=== PATIENT | male | born 1935 | race Caucasian/White ===

== ENCOUNTER 2016-09-12 06:30 | Day surgery (SDC) | payer BC ==
--- NOTE | ~2016-09-12 | OP ---
Record Of Operation [facility] [address] [place]. [address] NAME: DARÍO GARCIA : 31 STATUS : [facility]#: [id number] AGE: 81 ADM/REG DATE : 09/12/16 MR#: [id number] REPORT SERV DATE: 10/07/16 DICTATED BY: ROE GARCIA DATE: 09/12/16 REPORT STATUS : Draft TRANSCRIBED BY: MODL DATE: 09/12/16 DATE OF PROCEDURE: 09/12/2016 PROCEDURE: Bronchoscopy with biopsy and argon plasma coagulation. SPECIMENS: BAL, right mainstem tumor; endobronchial biopsy, right mainstem tumor; brushing, right mainstem tumor. ESTIMATED BLOOD LOSS: 5-10 mL, epinephrine had been injected onto the tumor because of bleeding. DESCRIPTION: Informed consent was taken both verbal and written from the patient. Time-out was performed before procedure was started. All questions were answered. The patient was intubated endotracheally by Anesthesia and sedated under general anesthesia. Fiberoptic scope was inserted through the endotracheal tube to visualize the distal trachea and carly. I immediately saw abnormalities going into the right upper lobe with evidence of old clot and tumor plug in the right upper lobe. The segments of the remainder of the right lung and left lung were open and free of any other endobronchial lesions or abnormalities. I focussed most of my attention at the tumor in the right upper lobe/right mainstem. We took an endobronchial biopsy of the tumor, and it showed evidence of easy bleeding. This required frequent suctioning, and we did have a trap on the time to collect any bleeding and secretions. We made two touch preps with endobronchial biopsy and had several other specimens put into pathology cup. We also performed a brushing of this right mainstem tumor as well and had saline squirted down to the area to help clean the area out as well as for suction back for the trap. We had to inject epinephrine onto the lesion because of ongoing blood oozing. This did help control hemostasis, but there still was some mild oozing that did occur. We suctioned and cleaned out the area as best we could, and then with supervision by Dr. Jeremías Charles, we proceeded with argon plasma coagulation. Settings for the argon plasma were 0.8 L/minute flow rate at 15 leyva. The FiO2 was set at 35% on the ventilator, which was done by Anesthesia. The argon catheter was inserted into the airway and was over 4 cm away from the tip of the ET tube, and we used the argon plasma to control hemostasis and afford tissue construction of the tumor that is going to the right upper lobe. At the end of the procedure, we did coagulate the surface of the tumor and had no further bleeding. The patient tolerated the procedure well without any complications. Tissue will be sent to Pathology for final analysis. The patient now will proceed with the second part of the procedure, which was a planned bone marrow biopsy by Dr. Vincent Orona. This was at the request of Dr. Cal Toussaint with Oncology. ADDENDUM: Please make note to this bronchoscopy report that we did perform a BAL of the right mainstem, which did show positive cytology for non-small cell lung cancer upon final result. CEP/MODL Record Of [address] [address] NAME: DARÍO GARCIA : 31 STATUS : [facility] PAT#: [id number] AGE: 81 ADM/REG DATE : 09/12/16 MR#: [id number] REPORT SERV DATE: 10/07/16 DICTATED BY: ROE GARCIA DATE: 09/12/16 REPORT STATUS : Draft TRANSCRIBED BY: MODL DATE: 09/12/16 Roe Garcia DO / [id number] CC: DO Catherine Da Silva M.D. Derek W Holland, M.D.
--- NOTE | ~2016-09-12 | OP ---
Record Of Operation [facility] [address] [address] NAME: DARÍO GARCIA : 31 STATUS : [facility]#: [id number] AGE: 81 ADM/REG DATE : 09/12/16 MR#: [id number] REPORT SERV DATE: 10/06/16 DICTATED BY: ROE GARCIA DATE: 10/06/16 REPORT STATUS : Draft TRANSCRIBED BY: MODL DATE: 10/06/16 DATE OF PROCEDURE: 09/12/2016 ADDENDUM: Please make note to this bronchoscopy report that we did perform a BAL of the right mainstem, which did show positive cytology for non-small cell lung cancer upon final result. CEP/ISELAL Roe Garcia DO / [id number]
[~2016-09-12 06:30] MED LIST: ALEVE220 MG PO; ASAB PO; B COMPLETE PO; BENEFIBER PO; CELEXA20 PO; CENTRUM PO; CITRACAL PO; CO Q-10100 MG PO; COQ10100 MG PO; CRANACTIN PO; FEOSOL PO; FLOMAX4 PO; GLUCCHONDR PO; GLUCPH PO; HYDROCHLOROT12.5 MG PO; L-CARNITINE500 M1 OR; L20 PO; LOP25 PO; MELA3 PO; METAMUCIL CAN7 OZ PO; METFORMIN PO; MICROZIDE PO; NAP375 PO; OS500+D PO; PRAV10 PO; PRIN20 PO; REM15 PO; T PO; THERAPEUTIC PO; TIAZA4 PO; Tylenol PO; VITAMIN B 50 PO; VITAMIN D1000 UNI1 PO; ZESTRIL20 MG PO
[2016-09-12 06:48] LABS: BASOPHILS 0.1 %; BASOPHILS ABSOLUTE 0.01 10/3/uL (0.0-0.16); EOSINOPHILS 2.3 %; EOSINOPHILS ABSOLUTE 0.23 10/3/uL (0.0-0.53); HEMATOCRIT 29.5 % (40.0-51.0); HEMOGLOBIN 9.5 g/dL (13.6-17.8); IMMATURE GRANULOCYTES 0.4 %; IMMATURE GRANULOCYTES ABSOLUTE 0.04 10/3/uL (0.0-0.11); LYMPHOCYTES 15.8 %; LYMPHOCYTES ABSOLUTE 1.61 10/3/uL (0.67-4.30); MEAN CORPUS HGB CONC 32.2 g/dL (32.0-36.0); MEAN CORPUSCULAR HEMOGLOB 28.3 pg (26.0-34.0); MEAN CORPUSCULAR VOLUME 87.8 fL (80-100); MEAN PLATELET VOLUME 8.5 fL (9.2-13.0); MONOCYTES 16.2 %; MONOCYTES ABSOLUTE 1.65 10/3/uL (0.21-1.20); NEUTROPHILS 65.2 %; NEUTROPHILS ABSOLUTE 6.65 10/3/uL (2.02-8.40); PLATELET COUNT 431 10/3/uL (150-400); RBC DISTRIBUTION WIDTH 16.5 % (12.0-16.0); RED CELL COUNT 3.36 10/6/uL (4.7-6.1); WHITE BLOOD CELLS 10.2 10/3/uL (4.5-10.5)
[2016-09-12 06:50] LABS: MANUAL DIFF NO %; RETICULOCYTE COUNT 2.1 % (0.5-2.5); RETICULOCYTE COUNT ABSOLUTE 71.8 10/3/uL (20.2-119.8)
[2016-09-12 06:57] LABS: BUN (BLOOD UREA NITROGEN) 12 MG/DL (6-23); CALCIUM, SERUM 8.9 MG/DL (8.5-10.4); CHLORIDE, SERUM 104 MMOL/L (96-112); CO2 (CARBON DIOXIDE) 28 MMOL/L (24-34); POTASSIUM, SERUM 4.2 MMOL/L (3.5-5.3); SODIUM, SERUM 140 MMOL/L (135-148)
[2016-09-12 06:58] LABS: INTERNATIONAL NORMAL RATI 1.2 UNITS (-); PARTIAL THROMBO TIME 38.8 SEC (22.5-37.2); PROTIME (NOT ORD) 14.9 SEC (12.0-14.5)
[2016-09-12 07:00] LABS: CREATININE 0.82 MG/DL (0.70-1.30); GFR AFRICAN AMERICAN 95 ML/MIN (>=60); GFR NON AFRICAN AMERICAN 82 ML/MIN (>=60); GLUCOSE, SERUM 127 MG/DL (60-99)
[2016-09-12 13:51] LABS: BD FL LYMPH (NOT ORD) 2 %; BF BASO (NOT OF) 0 %; BF LARGE MONONUCLEAR 34 %; BF TOTAL CELL CT (NOT ORD 710 /MM3; BODY FLUID EOS (NOT ORD) 0 %; BODY FLUID SEG (NOT ORD) 64 %
[2016-09-12 13:52] LABS: BD FL SOURCE (NOT ORD) BAL RT; BODY FLUID RBC (NOT ORD) 225000 /MM3
[2016-12-19] MEDS ORDERED: DSS PO (08:40)
[2016-12-19] MEDS ORDERED: ALEVE220 MG PO (08:40)
[2016-12-19] MEDS ORDERED: CARBOPLATIN150 MG IV (08:40)
[2016-12-19] MEDS ORDERED: CRANBERRY300 MG PO (08:41)
[2016-12-19] MEDS ORDERED: FERROUS SULF325 M1 PO (08:41)
[2016-12-19] MEDS ORDERED: GLUCPH PO (08:42)
[2016-12-19] MEDS ORDERED: VITAMIN D31000 UNIT PO (08:42)
[2016-12-19] MEDS ORDERED: PRAV10 (11:34)
[2016-12-22] MEDS ORDERED: PLAVIX PO (15:20)
[2016-12-22] MEDS ORDERED: NORV5 PO (19:01)
== END 2016-09-12 23:59 | disposition home or self-care (01) ==
LOC: DMU 06:30
PROVIDERS: Anesthesiology; Internal Medicine Pulmonary Disease; Pathology Anatomic Pathology & Clinical Pathology
PROC: 0BB38ZX Excision of Right Main Bronchus, Via Natural or Artificial Opening Endoscopic, Diagnostic (ICD-10-PCS; principal; 2016-09-12 08:00)
PROC: 0BB38ZX Excision of Right Main Bronchus, Via Natural or Artificial Opening Endoscopic, Diagnostic (ICD-10-PCS; 2016-09-12 08:00)
PROC: 0BB Respiratory System, Excision (ICD-10-PCS; 2016-09-12 08:00)
DX: C34.01 Malignant neoplasm of right main bronchus (principal); I10 Essential (primary) hypertension; E11.9 Type 2 diabetes mellitus without complications; Z98.41 Cataract extraction status, right eye; Z98.42 Cataract extraction status, left eye; Z96.1 Presence of intraocular lens; Z90.49 Acquired absence of other specified parts of digestive tract; Z95.5 Presence of coronary angioplasty implant and graft; M19.90 Unspecified osteoarthritis, unspecified site; Z98.890 Other specified postprocedural states; K57.90 Diverticulosis of intestine, part unspecified, without perforation or abscess without bleeding; N40.0 Benign prostatic hyperplasia without lower urinary tract symptoms; D64.9 Anemia, unspecified; Z85.51 Personal history of malignant neoplasm of bladder; Z79.899 Other long term (current) drug therapy; Z79.82 Long term (current) use of aspirin
CPT/HCPCS: 80048; 81235; 85025; 85045; 85610; 85730; 87015; 87070; 87102; 87116; 87205; 88112; 88184; 88185; 88305; 88311; 88312; 88313; 88333; 88341; 88342; 88344; 88367; 89051; 93005; A9270-GY; J2405; J2710; J3010

== ENCOUNTER 2016-09-18 08:31 | Day surgery (SDC) | payer BC ==
--- NOTE | ~2016-09-18 | EGD ---
EGD REPORT [facility] [address] [address] NAME: DARÍO GARCIA : 31 STATUS : REG [facility] PAT#: [id number] AGE: 81 ADM/REG DATE : 09/18/16 MR#: [id number] REPORT SERV DATE: 09/18/16 DICTATED BY: BRITTNY DOCKERY DATE: 09/18/16 REPORT STATUS : Draft TRANSCRIBED BY: [employer] DATE: 09/18/16 Pulmonology Patient Name: Darío Garcia Procedure Date: 09/18/2016 1:32 PM Date of : 1935 Attending MD: SHARITA DOCKERY MD Procedure Date No Time: 09/18/2016 Procedure: Flexible Rigid Bronchoscopy Indications: RUL/ROSEMARY NSCLCa. Tumor debulking and staging. Providers: SHARITA DOCKERY MD Referring MD: JAS GARCIA Medicines: Lidocaine 2% 20 mL Complications: No immediate complications Procedure: Pre-Anesthesia Assessment: - A History and Physical has been performed. Patient meds and allergies have been reviewed. The risks and benefits of the procedure and the sedation options and risks were discussed with the patient. All questions were answered and informed consent was obtained. Patient identification and proposed procedure were verified prior to the procedure by the physician and the nurse in the procedure room. Mental Status Examination: normal. Airway Examination: normal oropharyngeal airway. Respiratory Examination: poor air movement. CV Examination: normal and RRR, no murmurs, no S3 or S4. ASA Grade Assessment: III - A patient with severe systemic disease. After reviewing the risks and benefits, the patient was deemed in satisfactory condition to undergo the procedure. The anesthesia plan was to use general anesthesia. Immediately prior to administration of medications, the patient was re-assessed for adequacy to receive sedatives. The heart rate, respiratory rate, oxygen saturations, blood pressure, adequacy of pulmonary ventilation, and response to care were monitored throughout the procedure. The physical status of the patient was re-assessed after the procedure. After obtaining informed consent, the BF [id number] was introduced through the mouth, via the endotracheal tube (the patient was intubated for the procedure) and advanced to the tracheobronchial tree. the Bronchoscope was introduced through the and advanced to the. The procedure was accomplished without difficulty. The patient tolerated the procedure well. Findings: The endotracheal tube is in good position. The visualized portion of the EGD REPORT [place] [id number] [facility] [place]. [address] NAME: DARÍO GARCIA : 31 STATUS : REG [facility]#: [id number] AGE: 81 ADM/REG DATE : 09/18/16 MR#: [id number] REPORT SERV DATE: 09/18/16 DICTATED BY: BRITTNY DOCKERY DATE: 09/18/16 REPORT STATUS : Draft TRANSCRIBED BY: [facility] DATE: 09/18/16 trachea is of normal caliber. The carly is sharp. The tracheobronchial tree was examined to at least the first subsegmental level. Large friable tumor with approximately 50% airway obstruction. Endobronchial biopsies and tumor debulking performed with GI Jumbo forceps. The ROSEMARY is now completely patent. I am not able to salvage the RUL due to tumor obstruction and distortion of anatomy. EBUS TBNA of lymph node level 11Lx 4 passes for cytology EBUS TBNA of lymph node level 7 x 4passes for cytology EBUS TBNA of lymph node level 4R x 5passes for cytology Bronchoalveolar lavage was performed in the right upper lobe of the lung and sent for routine cytology. 60 mL of fluid were instilled. 20 mL were returned. The return was bloody. The FiO2 was then lowered to less than 40% and argon plasma coagulation therapy was performed for destruction of tissue and hemostasis. Impression: 1. MIAN: N2 positive disease. 2. Unclear if right mammary node is involved - not a typical site of smith metastasis. If mammary node is positive, he would be upstaged to N3 disease. 3. ROSEMARY tumor debulked and now widely patent. (see pictures) 4. RUL is not salvageable by endoscopic debulking. 5. Additional biopsies taken for possible molecular testing. Recommendation: - Await test results. - Recommend radiation therapy for palliative therapy to RUL for airway obstruction. If he qualifies for definitive therapy, this would be ideal. - Follow up with Dr. Garcia and Dr. Toussaint - Liquid biopsy - Requested PDL1 testing. Attending Participation: I personally performed the entire procedure. SHARITA DOCKERY MD 09/18/2016 2:45 PM This report has been signed electronically. Number of Addenda: 0 Note Initiated On: 09/18/2016 1:32 PM
--- NOTE | ~2016-09-18 | CN ---
Consultation Report [facility] [address] [facility] [address] [place]. [address] NAME: DARÍO GARCIA : 31 STATUS : [facility] [place]#: [id number] AGE: 81 ADM/REG DATE : 09/18/16 MR#: [id number] REPORT SERV DATE: 09/18/16 DICTATED BY: LIONEL DOCKERY DATE: 09/18/16 REPORT STATUS : Draft TRANSCRIBED BY: MODL DATE: 09/18/16 CONSULTATION REPORT DATE OF CONSULTATION: Dear Dr. Toussaint and Dr. Garcia: Thank you for requesting my opinion regarding evaluation and management of Mr. Darío Garcia's right mainstem tumor recently biopsied by Dr. Garcia, positive for non-small cell lung cancer, with immuno stains pending. 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 The patient had a history of subjective shortness of breath and had difficulty walking up a flight of stairs. He had an extensive workup for unexplained weight loss and he was scheduled for bronchoscopy. He had recently underwent a CT imaging that demonstrated right hilar lung mass. Subsequent PET-CT scan was performed on 09/08/2016, that confirmed a mural nodule in the right mainstem with soft tissue adjacent to the right hilum extending along the bronchovascular structures in the right upper lobe. The patient then underwent bronchoscopy by Dr. Roe Garcia on 09/12/2016, that demonstrated a large right hilar lung mass with nearly 50% to 75% airway occlusion and the patient underwent bone marrow biopsy by Dr. Vincent Orona. Biopsy results are still pending, but was positive for non-small cell lung cancer. I discussed the case with Dr. Garcia intraoperatively and later with Dr. Toussaint and we agreed to proceed forward with a flexible rigid bronchoscopy with tumor debulking for therapeutic reasons, and staging of the mediastinum given the recent PET-CT scan findings. The patient states that he has chronic shortness of breath well localized to the chest, nonradiating with no significant alleviating, deviating, or exacerbating factors. REVIEW OF SYSTEMS: A detailed 14-point review of systems was completed. Pertinent positives and negatives are listed above. PAST MEDICAL HISTORY: 1. Basal cell skin carcinoma. 2. Recent diagnosis of non-small cell lung cancer. 3. Coronary artery disease. 4. Bladder cancer. 5. History of sepsis. PAST SURGICAL HISTORY: 1. Appendectomy. 2. Cataract surgery. 3. Foot surgery. 4. Gastric surgery for morbid obesity and graft bypass. Consultation Report [facility] [address] [place]. [address] NAME: DARÍO GARCIA : 31 STATUS : [facility] PAT#: [id number] AGE: 81 ADM/REG DATE : 09/18/16 MR#: [id number] REPORT SERV DATE: 09/18/16 DICTATED BY: LIONEL DOCKERY DATE: 09/18/16 REPORT STATUS : Draft TRANSCRIBED BY: [employer]Ag DATE: 09/18/16 5. Inguinal hernia repair. 6. Knee surgery. 7. Neurologic surgery and carotid endarterectomy. 8. Tonsillectomy. 9. Transcatheter placement of a carotid arterial stent. ALLERGIES: NO KNOWN DRUG ALLERGIES. HOME MEDICATIONS: Reviewed and located in the paper chart. FAMILY HISTORY: Type 2 diabetes, nephritis neck, alcohol abuse, hypertension, and myocardial infarction. SOCIAL HISTORY: The patient is a former smoker, quit 37 years ago, but smoked one pack per day for approximately 25 years. He has no history of alcohol or illicit drug abuse. IMAGING: PET-CT scan on 09/17/2016, was personally reviewed by me and demonstrates preliminary neoplasm in the right hilum invading the superior right mainstem and qualifies for the T3 lesion. Interestingly, an internal mammary lymph node was not specifically addressed in the staging protocol, but may represent an M1 lesion at this if this is characterized as an N3 node, this would be stage IIIB disease. ASSESSMENT AND PLAN: Mr. Darío Garcia is an 81-year-old gentleman, with a significant past medical history of recent diagnosis of non-small cell lung cancer, monoclonal gammopathy of undetermined significance, anemia, diabetes, hypertension, and prior tobacco abuse, who presents to [facility] for formal evaluation for possible flexible rigid bronchoscopy and mediastinal staging. The patient has already obtain a diagnosis by Dr. Roe Garcia. At the time of his bronchoscopy, the patient was noted to have a large right mainstem lesion with nearly 50% to 75% airway occlusion. I have been asked to evaluate him for possible tumor debulking and I discussed this case further with Dr. Cal Toussaint, who requested mediastinal staging given the recent PET-CT findings. The patient is aware that flexible rigid bronchoscopy is associated with potential life- threatening risks, including, injury to the mouth, lips, teeth, gums, posterior oropharynx, airways, and neighboring organs. If we utilize thermo-ablative technologies, there is some risk for airway fire. With flexible and rigid bronchoscopy, there is an associated risk of airway perforation, pneumothorax, and left olecranon, life-threatening bleeding, and even . RECOMMENDATIONS: A summary of my recommendations are as follows: 1. Proceed with flexible rigid bronchoscopy and EBUS mediastinal staging. 2. If we are successful in debulking the tumor, we will try to avoid stent placement. 3. Biodesix liquid biopsy. Consultation Report [address] [place]. [address] NAME: DARÍO GARCIA : 31 STATUS : [facility] PAT#: [id number] AGE: 81 ADM/REG DATE : 09/18/16 MR#: [id number] REPORT SERV DATE: 09/18/16 DICTATED BY: LIONEL DOCKERY DATE: 09/18/16 REPORT STATUS : Draft TRANSCRIBED BY: ISELAL DATE: 09/18/16 4. Request Keytruda for PD-L1 testing and reflex molecular testing if adenocarcinoma. 5. We will also obtain additional tissue for possible future for molecular targeted therapy. Thank you for allowing me to participate in Mr. Garcia's care. NICOLAS/TIA Lionel Dockery M.D. / [id number] CC: Devi Carvajal M.D.
[2016-12-19] MEDS ORDERED: CARBOPLATIN150 MG IV (08:40)
[2016-12-19] MEDS ORDERED: ALEVE220 MG PO (08:40)
[2016-12-19] MEDS ORDERED: DSS PO (08:40)
[2016-12-19] MEDS ORDERED: CRANBERRY300 MG PO (08:41)
[2016-12-19] MEDS ORDERED: FERROUS SULF325 M1 PO (08:41)
[2016-12-19] MEDS ORDERED: GLUCPH PO (08:42)
[2016-12-19] MEDS ORDERED: VITAMIN D31000 UNIT PO (08:42)
[2016-12-19] MEDS ORDERED: PRAV10 (11:34)
[2016-12-22] MEDS ORDERED: PLAVIX PO (15:20)
[2016-12-22] MEDS ORDERED: NORV5 PO (19:01)
== END 2016-09-18 23:59 | disposition home or self-care (01) ==
LOC: DMU 08:31
PROVIDERS: Internal Medicine
PROC: 0BB48ZX Excision of Right Upper Lobe Bronchus, Via Natural or Artificial Opening Endoscopic, Diagnostic (ICD-10-PCS; principal; 2016-09-18 10:00)
PROC: 07B74ZX Excision of Thorax Lymphatic, Percutaneous Endoscopic Approach, Diagnostic (ICD-10-PCS; 2016-09-18 10:00)
PROC: 0B948ZX Drainage of Right Upper Lobe Bronchus, Via Natural or Artificial Opening Endoscopic, Diagnostic (ICD-10-PCS; 2016-09-18 10:00)
PROC: 0B5C8ZZ Destruction of Right Upper Lung Lobe, Via Natural or Artificial Opening Endoscopic (ICD-10-PCS; 2016-09-18 10:00)
DX: C77.1 Secondary and unspecified malignant neoplasm of intrathoracic lymph nodes (principal); C34.90 Malignant neoplasm of unspecified part of unspecified bronchus or lung; F51.04 Psychophysiologic insomnia; F32.9 Major depressive disorder, single episode, unspecified; N40.0 Benign prostatic hyperplasia without lower urinary tract symptoms; E11.9 Type 2 diabetes mellitus without complications; I10 Essential (primary) hypertension; E78.00 Pure hypercholesterolemia, unspecified; E78.5 Hyperlipidemia, unspecified; K40.90 Unilateral inguinal hernia, without obstruction or gangrene, not specified as recurrent; I35.0 Nonrheumatic aortic (valve) stenosis; N39.0 Urinary tract infection, site not specified; E55.9 Vitamin D deficiency, unspecified; Z87.891 Personal history of nicotine dependence; Z79.82 Long term (current) use of aspirin; Z79.52 Long term (current) use of systemic steroids; Z79.899 Other long term (current) drug therapy; Z98.890 Other specified postprocedural states; Z90.49 Acquired absence of other specified parts of digestive tract; Z90.89 Acquired absence of other organs; Z83.3 Family history of diabetes mellitus; Z82.49 Family history of ischemic heart disease and other diseases of the circulatory system
CPT/HCPCS: 71010; 82962; 88112; 88172; 88173; 88305; 88341; 88342; A9270-GY; C1725; J2370; J2710; J3010